=== PATIENT | female | born 1955 | race Caucasian/White ===

== ENCOUNTER 2016-07-23 07:37 | Emergency (ER) | payer OTHER ==
[~2016-07-23] VITALS: Ht 167.6 cm; Wt 90.9 kg
[2016-07-23] MEDS ORDERED: OMEP20CA10 PO (07:48)
[2016-07-23] MEDS ORDERED: CHOL200018 PO (07:48)
[2016-07-23] MEDS ORDERED: IBUPROFEN 600 MG TABLET PO ONE (09:15)
[2016-07-23] MEDS ORDERED: OxyCODONE HCL/ACETAMINOPHEN 5-325 MG TABLET PO ONE (11:45)
[2016-07-23 13:48] VITALS: BP 125/82
== END 2016-07-23 13:58 | disposition home or self-care (01) ==
LOC: EMS 07:39
DX: S16.1XXA Strain of muscle, fascia and tendon at neck level, initial encounter (principal); S13.4XXA Sprain of ligaments of cervical spine, initial encounter; S80.12XA Contusion of left lower leg, initial encounter; S80.11XA Contusion of right lower leg, initial encounter; S30.1XXA Contusion of abdominal wall, initial encounter; K21.9 Gastro-esophageal reflux disease without esophagitis; V49.9XXA Car occupant (driver) (passenger) injured in unspecified traffic accident, initial encounter; Y93.89 Activity, other specified; Y92.413 State road as the place of occurrence of the external cause; Y99.9 Unspecified external cause status
CPT/HCPCS: 76700; 99284